=== PATIENT | male | born 1975 | race Two or more races ===

== ENCOUNTER 2020-10-06 07:59 | Emergency (ER) | payer BC, OTHER ==
[~2020-10-06] VITALS: Ht 170.2 cm; Wt 95.3 kg
[2020-10-06 08:43] VITALS: BP 139/84
== END 2020-10-06 09:01 | disposition home or self-care (01) ==
LOC: ER 07:59
DX: F41.9 Anxiety disorder, unspecified (principal); R07.89 Other chest pain
CPT/HCPCS: 93005